=== PATIENT | female | born 1955 | race Caucasian/White ===

== ENCOUNTER 2022-03-18 10:09 | Emergency (ER) | payer MEDICARE, OTHER ==
[~2022-03-18] VITALS: Ht 149.9 cm; Wt 77.0 kg
[2022-03-18 10:30] VITALS: BP 143/71
[2022-03-18 10:45] VITALS: BP 147/71
[2022-03-18 12:07] VITALS: BP 147/71
== END 2022-03-18 12:16 | disposition home or self-care (01) ==
LOC: ED 10:09
DX: M25.572 Pain in left ankle and joints of left foot (principal)